=== PATIENT | female | born 1965 | race Two or more races ===

== ENCOUNTER → 2024-01-02 08:01 | Outpatient (REF) | payer OTHER, SELFPAY | LOC: PAVMRI 08:01 | PROVIDERS: ATTENDING PHYSICIAN Orthopaedic Surgery; FAMILY PHYSICIAN Physician Assistant Medical | DX: M54.16 Radiculopathy, lumbar region (principal); D47.1 Chronic myeloproliferative disease | CPT/HCPCS: 72158; A9575 ==

== ENCOUNTER 2024-02-20 16:42 | Outpatient (RCR) | payer OTHER, SELFPAY | END 2024-02-20 23:59 | disposition home or self-care (01) | LOC: RPT 16:42 | PROVIDERS: ATTENDING PHYSICIAN Orthopaedic Surgery; FAMILY PHYSICIAN Physician Assistant Medical | DX: M54.2 Cervicalgia (principal); M54.16 Radiculopathy, lumbar region; Z73.6 Limitation of activities due to disability | CPT/HCPCS: 97010; 97110; 97112; 97140; 97162; 97535 ==

== ENCOUNTER 2024-03-18 14:55 | Outpatient (RCR) | payer OTHER, SELFPAY | END 2024-03-18 23:59 | disposition home or self-care (01) | LOC: RPT 14:55 | PROVIDERS: ATTENDING PHYSICIAN Orthopaedic Surgery; FAMILY PHYSICIAN Physician Assistant Medical | DX: M54.12 Radiculopathy, cervical region (principal); M54.2 Cervicalgia; M54.16 Radiculopathy, lumbar region; Z73.6 Limitation of activities due to disability | CPT/HCPCS: 97010; 97110; 97112; 97140; 97535 ==

== ENCOUNTER 2024-03-28 15:27 | Outpatient (RCR) | payer OTHER, SELFPAY | END 2024-03-29 07:11 | disposition home or self-care (01) | LOC: RPT 15:27 | PROVIDERS: ATTENDING PHYSICIAN Orthopaedic Surgery; FAMILY PHYSICIAN Physician Assistant Medical | DX: M54.12 Radiculopathy, cervical region (principal); M54.2 Cervicalgia; M54.16 Radiculopathy, lumbar region | CPT/HCPCS: 97110; 97112; 97140 ==

== ENCOUNTER → 2024-07-03 13:24 | Outpatient (REF) | payer OTHER, SELFPAY | LOC: HWWDC 13:24 | PROVIDERS: ATTENDING PHYSICIAN Physician Assistant Medical; REFERRING PHYSICIAN Internal Medicine Hematology & Oncology | DX: Z12.31 Encounter for screening mammogram for malignant neoplasm of breast (principal) | CPT/HCPCS: 77063; 77067 ==

== ENCOUNTER 2024-10-16 16:24 | Emergency (ER) | payer OTHER, SELFPAY ==
[2024-10-16 16:29] VITALS: BP 158/79
--- NOTE | 2024-10-16 17:17 | ED.GENMED ---
History of Present Illness
General
Chief Complaint: Visual Problem
Time Seen by Provider: 10/16/24 17:00
History of Present Illness
History of Present Illness:
59-year-old female without significant past medical history presenting for complete vision loss to the right eye. Patient notes that she is unable to see anything out of the right eye. She noticed it about 2 to 3 weeks ago when she had a stye on
her left eye and was placing a compress on the left eye. When she put a compress on the left eye, realized she could not see anything out of the right eye. She is too scared to tell anybody, so waited until today to go to her primary care doctor,
who then advised hospital. Denies issues with her vision in the past. Denies any pain to the eye. Denies weakness or numbness to her extremities. Denies chest pain, difficulty breathing, abdominal pain, or GI symptoms. Denies additional acute
medical complaints
Phy Exam
Physical Exam
Physical Exam:
General: Well-appearing, no clinical signs of dehydration, nontoxic and in no acute distress
HEENT: protecting airway, pupils equal and reactive, extraocular movements intact
Neck: appears supple
CV: Normal heart rate, regular rhythm
Resp: No accessory muscle use, no increased work of breathing, lungs clear to auscultation bilaterally
Abd: No distention
Extremities: No deformities, no swelling
Neuro: alert, complete vision loss of the right eye. No additional focal neurologic deficit
: deferred
Rectal: deferred
Psych: Normal affect
Skin: Intact
Scores
NIH Stroke Score
Level of Consciousness: 0 - Alert
LOC Questions: 0-Answers both correctly
LOC Commands: 0-Performs both correctly
Best Horizontal Gaze: 0-Normal
Visual San[place]: 2=Full hemianopia
Facial Palsy: 0=Normal, symmetrical
Motor - Right Arm: 0=No drift 10 seconds
Motor - Left Arm: 0=No drift 10 seconds
Motor - Right Le-No drift 5 seconds
Motor - Left Le-No drift 5 seconds
Limb Ataxia: 0-Absent
Sensation: 0-Normal
Best Language: 0-No aphasia
Dysarthria: 0-Normal
Extinction and Inattention: 0-No abnormality
Total Score:: 2
Course
Orders/Labs/Results
Orders:
Orders
10/16/24 17:32
CT Head W/o Iv Contrast Urgent
Comment:
Reason For Exam: complete vision loss to R-eye
10/16/24 17:41
Complete Blood Count/With Diff Urgent
Comprehensive Metabolic Panel Urgent
PTT Urgent
Prothrombin Time Urgent
10/16/24 17:46
Electrocardiogram (*1) Urgent
Reason for Study: Other
Other Reason for Exam: vision changes
EKG- Treatment ONCE
Abnormal Lab Results
10/16/24
17:41
Hct 36.8 L %
(37.0-47.0)
MCHC 32.9 L g/dL
(33.0-37.0)
RDW 16.3 H %
(11.5-14.5)
Abs Immat Gran (auto) 0.1 H 10^3/uL
(0-0.05)
Absolute Lymphs (auto) 0.9 L 10^3/uL
(1.2-3.4)
Immature Gran % 1.0 H %
(0-0.5)
Neutrophils % 79.6 H %
(42.2-75.2)
Lymphocytes % 13.1 L %
(20.5-51.1)
Chloride 108 H mmol/L
(98-107)
Glucose 100 H mg/dl
(70-99)
Total Bilirubin 1.4 H mg/dl
(0.2-1.3)
AST 43 H U/L
(14-36)
ALT 43 H U/L
(0-35)
Albumin 5.4 H g/dl
(3.5-5.0)
10/16/24 17:41
10/16/24 17:41
Vital Signs
Initial and Last Documented VS:
Initial Vital Signs
Temp Pulse Resp BP Pulse Ox
98.4 F 88 16 158/79 100
10/16/24 16:29 10/16/24 16:29 10/16/24 16:29 10/16/24 16:29 10/16/24 16:29
Last Documented Vital Signs
Temp Pulse Resp BP Pulse Ox
98.4 F 86 18 136/78 100
10/16/24 16:29 10/16/24 19:15 10/16/24 19:15 10/16/24 19:15 10/16/24 19:15
MDM/Problems Addressed
MDM/Problems Addressed:
59-year-old female presenting for complete vision loss of the right eye. Vital signs on arrival are normal
On exam patient is resting comfortably, no acute distress or discomfort. On exam however, patient does have complete vision loss of right eye. Differential considerations include CVA versus intraocular issue such as retinal detachment. Given
duration of symptoms, patient does not meet any criteria for TNK or emergent ophthalmologic surgery. Patient notes that symptoms could have been longer than 2 to 3 weeks, only noticed it after she covered her left eye. Will initiate workup with
laboratory analysis and CT brain imaging
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 Did discuss with neurosurgery at [facility], notes that she likely needs urgent transsphenoidal surgery, which they do not perform at their
facility, recommending transfer out. Patient updated. Will discuss with Leah Amaya
19:45 -patient accepted to [facility] by Dr. Bowman. Pending bed assignment.
*Critical Care Note
Total Time (30-74mins, 75-104mins- exclusive of procedures): Not Applicable
ED Attending Note
-
Portions of this chart may have been created with voice recognition software.� Occasional wrong word or��sound alike� substitutions may have occurred due to the inherent limitations of voice recognition software.
Discharge Plan
Departure
Prescriptions:
No Action
docosahexaenoic acid-epa 1 CAP capsule
1 tab PO DAILY
biotin 1 MG tablet
PO DAILY
Vitamin D
1 tab PO DAILY
Referrals:
Araceli Rodas PA [Family Provider] -
Interventions
Interventions:
*Risk Screen - Suicide Last Done: 10/16/24 16:29
*General Assessment Last Done: 10/16/24 16:29
*Neglect/Abuse Screening Last Done: 10/16/24 16:29
*ED- Fall Risk Assessment Last Done: 10/16/24 16:29
*ED COVID-19 Vaccine History Last Done: 10/16/24 16:29
ED-EENT Assessment Last Done: 10/16/24 17:32
ED- Neurological Assessment Last Done: 10/16/24 17:32
Discharge Date and Time
Print Language: TONGAN
[2024-10-16 17:48] LABS: % Basophils 0.6 % (0-2); % Lymphocytes 13.1 % (20.5-51.1); % Monocytes 5.7 % (1.7-9.3); % Neutrophils 79.6 % (42.2-75.2); Absolute Immature Granulocytes 0.1 10^3/uL (0-0.05); Absolute Lymphocytes 0.9 10^3/uL (1.2-3.4); Absolute Monocytes 0.4 10^3/uL (0.1-0.6); Absolute Neutrophils 5.6 10^3/uL (1.4-6.5); Hematocrit 36.8 % (37.0-47.0); Hemoglobin 12.1 g/dL (12.0-16.0); Mean Corp Hgb Conc. 32.9 g/dL (33.0-37.0); Mean Corpuscular Hgb 27.7 pg (27.0-31.0); Mean Corpuscular Volume 84.2 fL (81.0-99.0); Mean Platelet Volume 9.1 fL (7.4-10.4); Nucleated Red Blood Cells % 0 %; Platelet Count 342 10^3/uL (130-400); Red Blood Cell Count 4.37 10^6/uL (4.20-5.40); Red Cell Dist. Width 16.3 % (11.5-14.5)
[2024-10-16 17:57] LABS: APTT 32.4 Sec (23.4-35.0); PT 13.7 Sec (11.4-14.6)
[2024-10-16 18:18] LABS: ALT (SGPT) 43 U/L (0-35); AST (SGOT) 43 U/L (14-36); Albumin 5.4 g/dl (3.5-5.0); Alkaline Phosphatase 53 U/L (38-126); Blood Urea Nitrogen 15 mg/dl (7-17); Calcium 9.9 mg/dl (8.4-10.2); Carbon Dioxide 27 mmol/L (22-30); Chloride 108 mmol/L (98-107); Glucose 100 mg/dl (70-99); Potassium 4.9 mmol/L (3.5-5.1); Sodium 142 mmol/L (135-145); Total Bilirubin 1.4 mg/dl (0.2-1.3); eGFR > 60.00
[2024-10-16 19:15] VITALS: BP 136/78
[2024-10-16 21:06] VITALS: BP 137/74
== END 2024-10-16 21:29 | disposition short-term general hospital (02) ==
LOC: EMR 16:24
PROVIDERS: EMERGENCY PHYSICIAN Student in an Organized Health Care Education/Training Program; FAMILY PHYSICIAN Physician Assistant Medical
DX: H54.61 Unqualified visual loss, right eye, normal vision left eye (principal); R93.0 Abnormal findings on diagnostic imaging of skull and head, not elsewhere classified
CPT/HCPCS: 99285; 70450; 80053; 85025; 85610; 85730; 93005

== ENCOUNTER → 2025-02-25 13:33 | Outpatient (REF) | payer OTHER, SELFPAY | LOC: PAVMRI 13:33 | PROVIDERS: ATTENDING PHYSICIAN Nurse Practitioner; FAMILY PHYSICIAN Physician Assistant Medical | DX: D32.9 Benign neoplasm of meninges, unspecified (principal) | CPT/HCPCS: 70553; A9575 ==

== ENCOUNTER → 2025-07-08 13:47 | Outpatient (REF) | payer OTHER, SELFPAY | LOC: RAD 13:47 | PROVIDERS: ATTENDING PHYSICIAN Physician Assistant Medical | DX: M25.661 Stiffness of right knee, not elsewhere classified (principal); M25.662 Stiffness of left knee, not elsewhere classified | CPT/HCPCS: 73564 ==

== ENCOUNTER → 2025-07-09 13:18 | Outpatient (REF) | payer OTHER, SELFPAY | LOC: HWWDC 13:18 | PROVIDERS: ATTENDING PHYSICIAN Physician Assistant Medical | DX: Z12.31 Encounter for screening mammogram for malignant neoplasm of breast (principal) | CPT/HCPCS: 77063; 77067 ==